=== PATIENT | male | born 1950 | race Two or more races ===

== ENCOUNTER 2024-08-06 11:18 | Emergency (ER) | payer OTHER, SELFPAY ==
[2024-08-06 11:22] VITALS: BP 134/77
[2024-08-06 12:23] LABS: Hematocrit 32.6 % (39.0-52.0); Hemoglobin 10.7 g/dL (13.0-18.0); Mean Corp Hgb Conc. 32.8 g/dL (33.0-37.0); Mean Corpuscular Hgb 29.2 pg (27.0-31.0); Mean Corpuscular Volume 88.8 fL (80.0-94.0); Mean Platelet Volume 10.8 fL (7.4-10.4); Platelet Count 190 10^3/uL (130-400); Red Blood Cell Count 3.67 10^6/uL (4.70-6.10); Red Cell Dist. Width 13.6 % (11.5-14.5); White Blood Cell Count 4.7 10^3/uL (4.8-10.8)
--- NOTE | 2024-08-06 12:29 | ED.GENMED ---
History of Present Illness
General
Chief Complaint: Abnormal Lab Value
Time Seen by Provider: 08/06/24 11:31
History of Present Illness
History of Present Illness:
74-year-old male presents the emergency department due to a positive blood culture. Apparently last week he went to his routine dialysis appointment and reported chills thus blood cultures were sent. He was given a dose of IV vancomycin
prophylactically. Blood cultures resulted today, 1 out of 2 bottles positive for Staph epidermidis. He was given another dose of IV vancomycin, dialysis treatment was completed and he was referred to the ER for further workup. Patient denies any
plaints at this time. Specifically denies any fevers or chills. He has a fistula in the right upper extremity
Past History
Past History
ED Past Medical History: HTN and Renal failure
ED Past Surgical History: Other (Dialysis fistula right upper extremity)
Social History
Tobacco: Non-smoker
Alcohol: None
Drug: None
Personal: Single
Living: alone
Employment: Retired
Family History
Family History: Other
Review of Systems
Review of Systems
Allergies reviewed?: Yes
All Other Systems: ROS reviewed and negative except as documented in HPI and ROS
Phy Exam
Physical Exam
Physical Exam:
GEN: Well appearing, NAD, WDWN
HEENT: Oral mucosa moist, no scleral icterus
Cardiac: Regular rate
Lung: No respiratory distress, no tachypnea
MSK: No gross deformity or injuries. Fistula in right upper extremity, no erythema or warmth, strong thrill
Skin: Good color, no pallor or jaundice, no rashes
Neuro: AO x3, moves all extremities freely
Psych: Calm, cooperative
Course
Orders/Labs/Results
Orders:
Orders
08/06/24 12:04
Complete Blood Count/No Diff Urgent
Blood Culture Urgent
ALYSSA Source: Blood/Venous
Specimen Description:
08/06/24 12:08
Blood Culture Routine
ALYSSA Source: Blood/Venous
Specimen Description:
Abnormal Lab Results
08/06/24
12:04
WBC 4.7 L 10^3/uL
(4.8-10.8)
RBC 3.67 L 10^6/uL
(4.70-6.10)
Hgb 10.7 L g/dL
(13.0-18.0)
Hct 32.6 L %
(39.0-52.0)
MCHC 32.8 L g/dL
(33.0-37.0)
MPV 10.8 H fL
(7.4-10.4)
08/06/24 12:04
Vital Signs
Initial and Last Documented VS:
Initial Vital Signs
Temp Pulse Resp BP Pulse Ox
97.8 F 90 16 134/77 98
08/06/24 11:22 08/06/24 11:22 08/06/24 11:22 08/06/24 11:22 08/06/24 11:22
Last Documented Vital Signs
Temp Pulse Resp BP Pulse Ox
97.8 F 90 16 134/77 98
08/06/24 11:22 08/06/24 11:22 08/06/24 11:22 08/06/24 11:22 08/06/24 11:22
MDM/Problems Addressed
MDM/Problems Addressed:
AP blood cultures sent, the patient has no fever or leukocytosis. I discussed this with infectious disease and they agree this is likely a contaminant no further antibiotics are not indicated unless our repeat blood cultures return positive. I
think communicate these findings with the nurse practitioner Epifanio kumar. Culture results should be faxed daily to [phone]
*Critical Care Note
Total Time (30-74mins, 75-104mins- exclusive of procedures): Not Applicable
ED Attending Note
-
Portions of this chart may have been created with voice recognition software.� Occasional wrong word or��sound alike� substitutions may have occurred due to the inherent limitations of voice recognition software.
Discharge Plan
Departure
Patient Disposition: Home (Routine Discharge)
Date of Disposition: 08/06/24
Time of Disposition: 12:42
Patient with high blood pressure during this ER visit?: No
Discharge Problem:
Positive blood culture
Prescriptions:
No Action
multivitamin Tablet
1 tab PO DAILY
atorvastatin 20 mg tablet
20 mg PO DAILY
Rx Instructions:
PM
polyethylene glycol 3350 [Miralax] 17 gram Powder In Packet
17 g PO DAILY PRN (Reason: constipation)
calcium carbonate [Calcium Antacid] 300 mg (750 mg) Tablet,Chewable
300 mg PO TID PRN (Reason: indigestion/heartburn)
amlodipine 10 mg tablet
10 mg PO DAILY
docusate sodium 100 mg capsule
100 mg PO BID
cinacalcet 30 mg Tablet
30 mg PO QPM
sevelamer carbonate 800 mg tablet
1,600 mg PO DAILY
sevelamer carbonate 800 mg tablet
800 mg PO DAILY PRN (Reason: snack)
Rx Instructions:
Please confirm with renal doctor per family.
cholecalciferol (vitamin D3) [Vitamin D3] 50 mcg (2,000 unit) Tablet
50 mcg PO DAILY
acetaminophen 325 mg Tablet
650 mg PO Q4HPRN PRN (Reason: mild pain/ fever>100.5F) Qty: 1 0RF
benzonatate 200 mg capsule
200 mg PO TID PRN (Reason: Cough) Qty: 1 0RF
allopurinol 100 mg tablet
100 mg PO DAILY Qty: 0 0RF
ondansetron 4 mg tablet,disintegrating
4 mg PO Q8H PRN (Reason: nausea and vomiting) Qty: 10 0RF
levofloxacin 250 mg Tablet
250 mg PO Q48H Qty: 4 0RF
Rx Instructions:
Take on days of no dialysis
metronidazole 500 mg tablet
500 mg PO Q8H Qty: 20 0RF
clonidine HCl 0.1 mg Tablet
0.1 mg PO BID Qty: 60 0RF
carvedilol 12.5 mg Tablet
12.5 mg PO BID Qty: 60 0RF
Rx Instructions:
with meals
risperidone 0.25 mg Tablet
0.25 mg PO DAILY Qty: 30 0RF
risperidone 0.5 mg Tablet
0.5 mg PO HS Qty: 30 0RF
melatonin 5 mg Tablet
5 mg PO HS Qty: 30 0RF
Referrals:
UNKNOWN - PT DOES,NOT KNOW [Family Provider] -
Activity Restrictions/Additional Instructions:
The positive blood culture is likely contaminant. 2 blood cultures are obtained today, no further vancomycin is needed unless our blood cultures return positive.
Discharge Date and Time
Print Language: COMORAN
== END 2024-08-06 12:45 | disposition home or self-care (01) ==
LOC: EMR 11:18
PROVIDERS: Physician Assistant; EMERGENCY PHYSICIAN Emergency Medicine
DX: R78.81 Bacteremia (principal); I12.0 Hypertensive chronic kidney disease with stage 5 chronic kidney disease or end stage renal disease; N18.6 End stage renal disease; Z99.2 Dependence on renal dialysis; Z88.0 Allergy status to penicillin
CPT/HCPCS: 99283; 85027; 87040